=== PATIENT | female | born 1965 | race Caucasian/White ===

== ENCOUNTER 2018-04-04 18:34 | Observation (INO) ==
--- NOTE | 2018-04-04 19:06 | Emergency Department Note ---
ED Disposition Clinical Impression: Cough, Elevated WBC count, Hyponatremia Disposition: Admitted as Observation Condition on Discharge: Good - Critical Care Critical Care Time: No Attestation: On 04/04/18, the high probability of a clinically significant, sudden or life threatening deterioration of the following system(s) required my full and direct attention, intervention and personal management. The time I documented below is in addition to time spent performing reported procedures but includes the following listed in this critical care notation. Medical Decision Making - Medical Records Medical records reviewed: Yes: I reviewed the patient's medical records. MR Comment: Has most of care in [place], [place]. No prior lab work noted - [place] Inquiry Pt receiving controlled substance: No Vital Signs: 04/04/18 18:35 Temperature 97.8 F Temperature Source Oral Pulse Rate [Right Brachial] 101 H Respiratory Rate 20 Blood Pressure [Right Arm] 140/75 Blood Pressure Mean [Right Arm] 96 Blood Pressure Source [Right Arm] Automatic Cuff Blood Pressure Position [Right Arm] Sitting 02 Sat by Pulse Oximetry 94 L Oxygen Delivery Method Room Air - Lab Data Lab results reviewed: Yes: I reviewed the patient's lab results. Lab Results 04/04/18 18:53: WBC 33.0 H*, RBC 4.80, Hgb 11.1 L, Hct 34.6 L, MCV 72.1 L, MCH 23.1 L, MCHC 32.1, RDW 15.8, Plt Count 491 H, MPV 7.6, Neut % (Auto) 80.3 H, Lymph % (Auto) 14.7, [place] % (Auto) 3.8, Eos % (Auto) 0.6, Baso % (Auto) 0.5, Neut # (Auto) 26.5 H, Lymph # (Auto) 4.9 H, [place] # (Auto) 1.2 H, Eos # (Auto) 0.2, Baso # (Auto) 0.2 04/04/18 18:53: Sodium 125 L, Potassium 3.4 L, Chloride 88 L, Carbon Dioxide 27 , Anion Gap 13.4, BUN 15, Creatinine 0.92, Estimated Creat Clear 123, Estimated GFR 64, Est GFR ( Amer) 78, Glucose 96, Calcium 8.7, Total Bilirubin 0.4 , AST 20, ALT 23, Alkaline Phosphatase 89, Total Creatine Kinase 130, CK-MB (CK- 2) 1.6, CK-MB (CK-2) Rel Index 1.2, Troponin I < 0.02, Total Protein 7.4, Albumin 3.4, Globulin 4.0 H, Albumin/Globulin Ratio 0.9 L 04/04/18 18:53: Lactic Acid 1.1 04/04/18 19:45: Urine Color Yellow, Urine Appearance Clear, Urine pH 7.0, Ur Specific [place] 1.010, Urine Protein Negative, Urine Glucose (UA) 2+, Urine Ketones Negative, Urine Blood Negative, Urine Nitrate Negative, Urine Bilirubin Negative, Urine Urobilinogen 0.2, Ur Leukocyte Esterase Negative Result diagrams: 04/04/18 18:53 04/04/18 18:53 Orders (Tests/Meds): ED MEDICATIONS Generic Name Dose Route Start Last Admin Trade Name Freq PRN Reason Stop Dose Admin Acetaminophen 650 mg 04/04/18 19:55 Acetaminophen 325mg Tab PO 05/04/18 19:54 Q4HP PRN As Needed for Fever or Pain Sodium Chloride 1,000 mls @ 75 mls/hr 04/04/18 19:45 Sod Chlor 0.9% 1000ml Bag IV 05/04/18 19:44 .[id number] BRANDON Ceftriaxone Sodium 1 gm/ 50 mls @ 100 mls/hr 04/04/18 20:00 Sodium Chloride IV 04/18/18 19:59 Q24H BRANDON Protocol Azithromycin 500 mg/ Sodium 250 mls @ 250 mls/hr 04/04/18 20:00 Chloride IV 04/18/18 19:59 Q24H BRANDON Protocol Discontinued Medications Generic Name Dose Route Start Last Admin Trade Name Freq PRN Reason Stop Dose Admin Acetaminophen 500 mg 04/04/18 19:10 04/04/18 19:38 Tylenol 500mg Tablet PO 04/04/18 19:11 500 mg ONCE ONE Administration Albuterol/Ipratropium 3 ml 04/04/18 19:11 Duoneb 3ml Neb IH 04/04/18 19:12 ONCE ONE Ondansetron HCl 4 mg 04/04/18 19:11 04/04/18 19:38 Zofran 4mg Odt SL 04/04/18 19:12 4 mg ONCE ONE Administration ORDERS Category Date Time Status XR chest 2V Routine Exams 04/05/18 06:30 Ordered XR chest 2V Stat Exams 04/04/18 18:42 Taken Complete Blood Count Auto Diff Stat Lab 04/04/18 18:53 Results UA [Urinalysis and Microscopic] Stat Lab 04/04/18 19:45 Received Blood Culture Stat Micro 04/04/18 18:53 Received ECG Request by /Sergey Stat Y 04/04/18 18:42 Ordered - Radiology Data #1 Image(s): Chest Image Reviewed: Yes I reviewed the patient's radiology image Preliminary Findings: Normal/NAD, No Infiltrates Seen, Normal Lung Inflation [place] , Normal Heart Size (chronic changes) - ECG Data Tracing #1 I reviewed this ECG and interpreted as documented below: ECG initial impression date: 04/04/18 ECG initial impression time: 18:45 ECG normal with no acute: arrhythmias, ischemia, conduction abnormalities, chamber hypertrophy Normal Sinus Rhythm: Yes Resp/SOB HPI - General Chief Complaint: Shortness of Breath/Dyspnea Stated Complaint: SOA Time Seen by Provider: 04/04/18 19:12 Mode of Arrival: EMS Source of Information: Patient Limitations: No Limitations Description of Symptoms (Recalled from ER Triage Doc. by RN): Pt reports SOA. pt states has been cleaning out storage building, got hot, and became more SOA. Pt reports has been feeling SOA all day. - History of Present Illness SOB today when moving boxes and exposed to dust. Had some wheezing. Hx COPD. Pos relief with duoneb per [facility] [employer] [employer]. Longstanding calf pain with neg DVT six months ago in [place], [place]; no new calf pain today. No sputum. No fever but has chills. No CP or syncope. MD Complaint: shortness of breath Onset (ago): hour(s) Context: occurred during exertion, allergen exposure Severity: mild Consistency/Duration: intermittent Relieving factors: bronchodilators Exacerbating factors: movement Known history of: COPD Associated symptoms: denies other symptoms Treatment prior to arrival: bronchodilator - Related Data Allergies Allergy/AdvReac Type Severity Reaction Status Date / Time No Known Allergies Allergy Verified 04/04/18 18:41 - Well's Criteria PE Score Clinical signs/symptoms of DVT: No PE is #1 diagnosis or equally likely: No Heart rate is > 100: No Immobile at least 3 days, or surgery in past 4 wks: No Previously, obj. diagnosed PE or DVT: No Hemoptysis: No Malignancy w/Rx within 6mo, or palliative: No PE Score: 0 [facility] History Medical History: Reports:: Diabetes Mellitus Type 2 Denies:: Diabetes Mellitus Type 1 Laterality Cases: Left: Arthroscopy Shoulder, Carpal Tunnel Release - Social History Smoking Status: Current every day smoker Tobacco Type: cigarettes Alcohol Intake: never - Psychiatric History Expresses thoughts of harming self/others: None Suicide Plan Description: No Plan ROS Obtained: Yes All systems reviewed & no additional complaints Physical Exam - General General appearance: obese, other (HR 98) - Head Head exam: atraumatic, normocephalic, normal inspection - Eye Eye exam: Present: normal appearance, PERRL, EOMI - ENT ENT exam: Present: normal exam, normal oropharynx, mucous membranes moist, normal external ear exam - Neck Neck exam: Present: normal inspection, full ROM, trachea midline. Absent: meningismus, lymphadenopathy - Chest Chest inspection: Present: normal inspection, symmetric chest wall rise. Absent : tenderness - Respiratory Respiratory exam: Present: normal lung sounds bilaterally. Absent: respiratory distress - Cardiovascular Cardiovascular exam: Present: regular rate, normal rhythm. Absent: JVD - Abdominal Exam Abdominal exam: Present: soft, normal bowel sounds. Absent: distention, tenderness, guarding - Extremities Exam Extremities exam: Present: normal inspection, full ROM, normal capillary refill. Absent: calf tenderness - Back Exam Back exam: Present: normal inspection. Absent: tenderness - Neurological Exam Neurological exam: Present: alert, oriented X3. Absent: motor sensory deficit - Psychiatric Psychiatric exam: Present: normal affect, normal mood - Skin Skin exam: Present: warm, dry, intact, normal color - Lymphatic Lymphatic Findings: no adenopathy
[2018-04-04 19:26] LABS: Basophils # 0.2 K/mm3 (0-0.2); Basophils % 0.5 % (0.1-2.0); Eosinophils # 0.2 K/mm3 (0.0-0.4); Eosinophils % 0.6 % (0.1-12.0); Hematocrit 34.6 % (37.0-47.0); Hemoglobin 11.1 g/dL (12.2-16.2); Lymphocytes # 4.9 K/mm3 (0.7-4.5); Lymphocytes % 14.7 K/mm3 (10-50); Mean Corpuscular HGB Conc 32.1 g/dL (31.8-35.4); Mean Corpuscular Hemoglobin 23.1 pg (27.0-31.2); Mean Corpuscular Volume 72.1 fl (81-99); Mean Platelet Volume 7.6 fl (7.4-10.4); Monocytes # 1.2 K/mm3 (0.1-1.0); Monocytes % 3.8 % (1.7-9.3); Neutrophils # 26.5 K/mm3 (1.8-7.8); Neutrophils % 80.3 % (37.0-80.0); Platelet Count 491 K/mm3 (142-424); Red Cell Distribution Width 15.8 % (11.5-17.5)
[2018-04-04 19:30] LABS: Alanine Aminotransferase 23 U/L (12-78); Albumin Level 3.4 gm/dL (3.4-5.0); Albumin/Globulin Ratio 0.9 (1.1-1.8); Alkaline Phosphatase 89 U/L (46-116); Anion Gap 13.4 mEq/L (5-15); Aspartate Amino Transferase 20 U/L (15-37); Bilirubin,Total 0.4 mg/dL (0.2-1.0); Blood Urea Nitrogen 15 mg/dL (7-18); Calcium 8.7 mg/dL (8.5-10.1); Carbon Dioxide 27 mmol/L (21.0-32.0); Chloride 88 mmol/L (98-107); Creatine Kinase 130 U/L (26-192); Glucose 96 mg/dL (74-106); Potassium 3.4 mmoL/L (3.5-5.1); Sodium 125 mmol/L (136-145); Total Protein,Serum 7.4 gm/dL (6.4-8.2)
[2018-04-04 19:54] LABS: Microscopic, Urine URINE MICROSCOPIC (MICROSCOPIC)
[2018-04-04 20:02] LABS: Appearance,Urine CLEAR (Clear); Bilirubin,Urine Negative (Negative); Blood, Urine Negative (Negative); Color,Urine YELLOW (Yellow); Glucose,Urine (UA) 2+ (Negative); Ketones,Urine Negative (Negative); Leukocyte Esterase,Urine Negative (Negative); Protein,Urine Negative (Negative); Urobilinogen,Urine 0.2 EU/dl (0.2)
[2018-04-04 20:31] LABS: Lymphocytes % 19 % (10-50); Monocytes % 4 % (2-9); Neutrophils % 77 % (42-76); Total Cells Counted 100
[2018-04-04 20:32] LABS: RBC Morphology Normal; Stomatocytes 2+
[2018-04-04 20:43] LABS: Bacteria,Urine 1+ /lpf
[2018-04-04 20:44] LABS: RBC,Urine Occasional #/hpf (0-3)
--- NOTE | 2018-04-05 07:21 | Pharmacy Consult Notes ---
[facility] Pharmacy VTE Monitoring - Patient Demographics Admission date: 04/04/18 Report Date: 04/05/18 Time: 07:20 Allergies/Adverse Reactions: Patient Allergies No Known Allergies Allergy (Verified 04/04/18 18:41) Height: 1.68 m Weight: 104.326 kg Patient Problems: Current Active Problems Cough (Acute) Elevated WBC count (Acute) Hyponatremia (Acute) - VTE Risk Labs: VTE Related Lab Results Hgb 11.1 g/dL (12.2-16.2) L 04/04/18 18:53 Hct 34.6 % (37.0-47.0) L 04/04/18 18:53 Plt Count 491 K/mm3 (142-424) H 04/04/18 18:53 BUN 15 mg/dL (7-18) 04/04/18 18:53 Creatinine 0.92 mg/dL (0.55-1.02) 04/04/18 18:53 Estimated Creat Clear 123 mL/min (0-300) 04/04/18 18:53 VTE Score: 3 VTE Risk Level: Low Risk Clinical Trial Participant: No - Prophylaxis VTE Prophylaxis Ordered?: Yes Types of VTE Prophylaxis: TEDS Knee High Location of Applied Device: Bilateral Lower Extremeties
--- NOTE | 2018-04-05 08:38 | History & Physical Report ---
*Admission Date: 04/04/18 <Astrid Mcmanus 04/05/18 08:44> *Chief complaint: SOA <Astrid Mcmanus 04/05/18 08:44> *History of present illness: Ms. Tucker is a 53-year-old female patient of Dr. Montejo who began having shortness of breath yesterday morning while moving some of her things to storage. She states 911 was called and an ambulance transported her to the ER. She was given a breathing treatment in the ambulance which did help. She has had a cough but it has not been productive. She denies any chest pain or fever. She has had chills. Upon evaluation in the emergency room her white count was found to be elevated and she was admitted for possible pneumonia. This a.m. she states her shortness of breath is much better. <Astrid Mcmanus 04/05/18 08:44> [facility] History Medical History: Reports:: Atherosclerotic Heart Disease, Chronic Obstructive Pulmonary Disease (COPD), Diabetes Mellitus Type 2, Hyperlipidemia, MRSA Denies:: Diabetes Mellitus Type 1 <Astrid Mcmanus 04/05/18 08:44> Laterality Cases: Left: Arthroscopy Shoulder, Carpal Tunnel Release <Astrid Mcmanus 04/05/18 08:44> Other Surgeries: Yes: Cholecystectomy, Coronary Stent, , Hysterectomy- Total, Sinus Surgery <Astrid Mcmanus 04/05/18 08:44> - *Social History Smoking Status: Current every day smoker <Astrid Mcmanus 04/05/18 08:44> Tobacco Type: cigarettes <Astrid Mcmanus 04/05/18 08:44> # Packs/Day (cigarettes): 2 <Astrid Mcmanus 04/05/18 08:44> Alcohol Intake: never <Astrid Mcmanus 04/05/18 08:44> Occupational Status: disabled <Astrid Mcmanus 04/05/18 08:44> Household Members: spouse, children <Astrid Mcmanus 04/05/18 08:44> - Psychiatric History Expresses thoughts of harming self/others: None <Astrid Mcmanus 04/05/18 08: 44> Suicide Plan Description: No Plan <Astrid Mcmanus 04/05/18 08:44> *Family Hx:: Coronary Artery Disease, Diabetes, Heart Attack, Hyperlipidemia, Hypertension <Astrid Mcmanus 04/05/18 08:44> Review of Systems - Constitutional Reports chills, Reports weakness <Astrid Mcmanus 04/05/18 08:44> - Eyes Denies blurry vision, Denies double vision <Astrid Mcmanus 04/05/18 08:44> - ENT Reports nasal congestion, Reports sore throat <Astrid Mcmanus 04/05/18 08:44> - *Cardiovascular Reports fast heart rate, Denies chest pain <Astrid Mcmanus 04/05/18 08:44> - *Respiratory Reports cough, Reports shortness of breath, Reports shortness of breath with activity <Astrid Mcmanus 04/05/18 08:44> - *Gastrointestinal Reports vomiting (3x yesterday, none today), Denies abdominal pain, Denies loose stools, Denies nausea <Astrid Mcmanus 04/05/18 08:44> - *Genitourinary Denies difficulty urinating, Denies painful urination <Astrid Mcmanus 08:44> - *Musculoskeletal Denies joint pain, Denies muscle cramps <Astrid Mcmanus 04/05/18 08:44> - *Neurologic Denies headache(s), Denies dizziness <Astrid Mcmanus 04/05/18 08:44> Meds Home Medications Medication Instructions Recorded Confirmed Type Aspirin [Aspirin 81mg EC Tab] 81 mg PO DAILY 04/04/18 04/04/18 History Atorvastatin Calcium [Atorvastatin 80 mg PO HS 04/04/18 04/04/18 History 80mg Tab] Buspirone HCl [Buspar 5mg tablet] 5 mg PO TID 04/04/18 04/04/18 History Canagliflozin [Invokana] 100 mg PO DAILY 04/04/18 04/04/18 History Clopidogrel Bisulfate [Plavix] 75 mg PO HS 04/04/18 04/04/18 History Exenatide Microspheres [Bydureon 2 mg SQ WEEKLY 04/04/18 04/04/18 History Pen] Fenofibrate 160 mg PO DAILY 04/04/18 04/04/18 History Fluticasone/Salmeterol [Advair 2 puff INHALATION DAILY 04/04/18 04/04/18 History 500/50mcg diskus] Insulin Glargine,Hum.rec.anlog 60 unit SQ DAILY 04/04/18 04/04/18 History [Basaglar Kwikpen U-100] Insulin NPH Hum/Reg Insulin Hm 50 unit SQ BID 04/04/18 04/05/18 History [Humulin 70/30 Kwikpen] Isosorbide Mononitrate [Isosorbide 120 mg PO DAILY 04/04/18 04/04/18 History Mononitrate ER] Lisinopril [Lisinopril 10mg Tab] 10 mg PO DAILY 04/04/18 04/04/18 History Loratadine [Claritin] 10 mg PO DAILY 04/04/18 04/04/18 History Metformin HCl [Metformin 500mg 1,000 mg PO BID 04/04/18 04/04/18 History Tablet] Metoprolol Succinate 100 mg PO DAILY 04/04/18 04/04/18 History Montelukast Sodium [Montelukast 10 mg PO HS 04/04/18 04/04/18 History 10mg Tab] Pantoprazole Sodium [Protonix 40mg 40 mg PO DAILY 04/04/18 04/04/18 History tablet] Potassium Chloride [Klor-Con 10mEq 10 meq PO HS 04/04/18 04/04/18 History tab] Sucralfate [Sucralfate 1gm 1 gm PO TID 04/04/18 04/04/18 History Tab] Venlafaxine HCl [Venlafaxine HCl 375 mg PO DAILY 04/04/18 04/04/18 History ER] glyBURIDE [Diabeta 5mg tablet] 10 mg PO BID 04/04/18 04/04/18 History hydrOXYzine pamoate [Vistaril] 25 mg PO BID 04/04/18 04/04/18 History raNITIdine HCl [Ranitidine HCl] 150 mg PO DAILY 04/04/18 04/04/18 History Fluticasone Propionate [Flonase 1 spr NS DAILY 04/05/18 04/05/18 History 50mcg nasal spray 16gm] Gabapentin [Neurontin 600mg 600 mg PO TID 04/05/18 04/05/18 History tablet] Polyethylene Glycol 3350 [Gavilax] 17 gm PO DAILY 04/05/18 04/05/18 History hydroCHLOROthiazide [HCTZ 25mg 25 mg PO DAILY 04/05/18 04/05/18 History tab] <Sony Dodson - 04/05/18 10:24> Allergies Allergy/AdvReac Type Severity Reaction Status Date / Time No Known Allergies Allergy Verified 04/04/18 18:41 <Sony Dodson - 04/05/18 10:24> Exam Vital signs and Labs for Last 24 Hours: Temp Pulse Resp BP Pulse Ox 97.7 F 73 18 132/69 97 04/05/18 07:25 04/05/18 07:25 04/05/18 07:25 04/05/18 07:25 04/05/18 07:25 Laboratory Results - last 24 hr 04/04/18 18:53: WBC 33.0 H*, RBC 4.80, Hgb 11.1 L, Hct 34.6 L, MCV 72.1 L, MCH 23.1 L, MCHC 32.1, RDW 15.8, Plt Count 491 H, MPV 7.6, Neut % (Auto) 80.3 H, Lymph % (Auto) 14.7, [place] % (Auto) 3.8, Eos % (Auto) 0.6, Baso % (Auto) 0.5, Neut # (Auto) 26.5 H, Lymph # (Auto) 4.9 H, [place] # (Auto) 1.2 H, Eos # (Auto) 0.2, Baso # (Auto) 0.2, Total Counted 100, Neutrophils % (Manual) 77 H, Lymphocytes % (Manual) 19, Monocytes % (Manual) 4, Platelet Estimate Slight increase, RBC Morphology Normal, Stomatocytes 2+ 04/04/18 18:53: Sodium 125 L, Potassium 3.4 L, Chloride 88 L, Carbon Dioxide 27 , Anion Gap 13.4, BUN 15, Creatinine 0.92, Estimated Creat Clear 123, Estimated GFR 64, Est GFR ( Amer) 78, Glucose 96, Calcium 8.7, Total Bilirubin 0.4 , AST 20, ALT 23, Alkaline Phosphatase 89, Total Creatine Kinase 130, CK-MB (CK- 2) 1.6, CK-MB (CK-2) Rel Index 1.2, Troponin I < 0.02, Total Protein 7.4, Albumin 3.4, Globulin 4.0 H, Albumin/Globulin Ratio 0.9 L 04/04/18 18:53: Lactic Acid 1.1 04/04/18 19:45: Urine Color Yellow, Urine Appearance Clear, Urine pH 7.0, Ur Specific [place] 1.010, Urine Protein Negative, Urine Glucose (UA) 2+, Urine Ketones Negative, Urine Blood Negative, Urine Nitrate Negative, Urine Bilirubin Negative, Urine Urobilinogen 0.2, Ur Leukocyte Esterase Negative, Urine RBC Occasional, Ur Squamous Epith Cells 5-10, Urine Bacteria 1+ 04/04/18 22:59: POC Glucose 226 H <Sony Dodson - 04/05/18 10:24> Temp Pulse Resp BP Pulse Ox 97.7 F 73 18 132/69 97 04/05/18 07:25 04/05/18 07:25 04/05/18 07:25 04/05/18 07:25 04/05/18 07:25 Laboratory Results - last 24 hr 04/04/18 18:53: WBC 33.0 H*, RBC 4.80, Hgb 11.1 L, Hct 34.6 L, MCV 72.1 L, MCH 23.1 L, MCHC 32.1, RDW 15.8, Plt Count 491 H, MPV 7.6, Neut % (Auto) 80.3 H, Lymph % (Auto) 14.7, [place] % (Auto) 3.8, Eos % (Auto) 0.6, Baso % (Auto) 0.5, Neut # (Auto) 26.5 H, Lymph # (Auto) 4.9 H, [place] # (Auto) 1.2 H, Eos # (Auto) 0.2, Baso # (Auto) 0.2, Total Counted 100, Neutrophils % (Manual) 77 H, Lymphocytes % (Manual) 19, Monocytes % (Manual) 4, Platelet Estimate Slight increase, RBC Morphology Normal, Stomatocytes 2+ 04/04/18 18:53: Sodium 125 L, Potassium 3.4 L, Chloride 88 L, Carbon Dioxide 27 , Anion Gap 13.4, BUN 15, Creatinine 0.92, Estimated Creat Clear 123, Estimated GFR 64, Est GFR ( Amer) 78, Glucose 96, Calcium 8.7, Total Bilirubin 0.4 , AST 20, ALT 23, Alkaline Phosphatase 89, Total Creatine Kinase 130, CK-MB (CK- 2) 1.6, CK-MB (CK-2) Rel Index 1.2, Troponin I < 0.02, Total Protein 7.4, Albumin 3.4, Globulin 4.0 H, Albumin/Globulin Ratio 0.9 L 04/04/18 18:53: Lactic Acid 1.1 04/04/18 19:45: Urine Color Yellow, Urine Appearance Clear, Urine pH 7.0, Ur Specific [place] 1.010, Urine Protein Negative, Urine Glucose (UA) 2+, Urine Ketones Negative, Urine Blood Negative, Urine Nitrate Negative, Urine Bilirubin Negative, Urine Urobilinogen 0.2, Ur Leukocyte Esterase Negative, Urine RBC Occasional, Ur Squamous Epith Cells 5-10, Urine Bacteria 1+ 04/04/18 22:59: POC Glucose 226 H <Astrid Mcmanus - 04/05/18 08:44> I & O for Last 24 hours: Intake & Output 04/02/18 04/03/18 04/04/18 04/05/18 11:59 11:59 11:59 11:59 Intake Total 2419 / 2419 Output Total 1999 Balance 419 / 419 Weight 230 lb <Sony Dodson - 04/05/18 10:24> Intake & Output 04/02/18 04/03/18 04/04/18 04/05/18 11:59 11:59 11:59 11:59 Intake Total 2419 / 2419 Output Total 1999 Balance 419 / 419 Weight 230 lb <Astrid Mcmanus 04/05/18 08:44> - Constitutional no acute distress <Astrid Mcmanus 04/05/18 08:44> - *Routine HEENT Exam Head: Present: normocephalic, atraumatic <Astrid Mcmanus 04/05/18 08:44> Eye: Present: EOMI, PERRL <Astrid Mcmanus 04/05/18 08:44> ENT: Present: mucous membranes moist <Astrid Mcmanus 04/05/18 08:44> - *Routine Neck Exam Present: supple, full ROM [facility] 04[facility] 08:44> - *Routine Respiratory Exam Present: wheezes. Absent: rales [facility] 08:44> - *Routine Cardiovascular Exam Present: RRR [facility] 04/05/[facility] 08:44> - *Routine Abdominal Exam Present: soft, normoactive bowel sounds. Absent: tenderness [facility] 08:44> - *Routine Extremities Exam Present: edema (trace) [facility] 04/05/18 08:44> - *Routine Skin Exam Present: intact [facility] 04/05/18 08:44> - *Routine Neurological Exam Present: alert, oriented X3 [facility] 04/05/18 08:44> H&P: Result - Labs Labs: Short CBC 04/04/18 Range/Units 18:53 WBC 33.0 H* (4.8-10.8) K/mm3 Hgb 11.1 L (12.2-16.2) g/dL Hct 34.6 L (37.0-47.0) % Plt Count 491 H (142-424) K/mm3 BMP 04/04/18 18:53 Sodium 125 L Potassium 3.4 L Chloride 88 L Carbon Dioxide 27 BUN 15 Creatinine 0.92 Glucose 96 Calcium 8.7 Cardiac Enzymes 04/04/18 Range/Units 18:53 Total Creatine Kinase 130 (26-192) U/L CK-MB (CK-2) 1.6 (0.0-3.6) ng/ml Troponin I < 0.02 (0.00-0.06) ng/ml Liver Function 04/04/18 Range/Units 18:53 Total Bilirubin 0.4 (0.2-1.0) mg/dL AST 20 (15-37) U/L ALT 23 (12-78) U/L Alkaline Phosphatase 89 (46-116) U/L Albumin 3.4 (3.4-5.0) gm/dL Urine 04/04/18 Range/Units 19:45 Urine Color Yellow (Yellow) Urine Appearance Clear (Clear) Urine pH 7.0 (5.0-8.5) Ur Specific [place] 1.010 (1.005-1.030) Urine Protein Negative (Negative) Urine Glucose (UA) 2+ (Negative) <Sony Dodson - 04/05/18 10:24> <Astrid Mcmanus - 04/05/18 08:44> - Impressions CXR - Coarsening of the interstitial markings which could be related to smoking- related lung disease or interstitial pneumonitis <Astrid Mcmanus - 04/05/18 08:44> Assessment and Plan (1) Elevated WBC count Current visit: Yes Status: Acute Category: Medical Code(s): D72.829 - Elevated white blood cell count, unspecified (2) Hyponatremia Current visit: Yes Status: Acute Category: Medical Code(s): E87.1 - Hypo- osmolality and hyponatremia (3) Shortness of breath Current visit: Yes Status: Acute Category: Medical Code(s): R06.02 - Shortness of breath (4) Cough Current visit: Yes Status: Acute Category: Medical Code(s): R05 - Cough (5) COPD (chronic obstructive pulmonary disease) Current visit: Yes Status: Chronic Category: Medical Code(s): J44.9 - Chronic obstructive pulmonary disease, unspecified (6) Hyperlipidemia Current visit: Yes Status: Chronic Category: Medical Code(s): E78.5 - Hyperlipidemia, unspecified (7) Type 2 diabetes mellitus Current visit: Yes Status: Chronic Category: Medical Code(s): E11.9 - Type 2 diabetes mellitus without complications (8) Coronary artery disease Current visit: Yes Status: Chronic Category: Medical Code(s): I25.10 - Atherosclerotic heart disease of [place] coronary artery without angina pectoris <Astrid Mcmanus - 04/05/18 08:35> (1) Pneumonia Current visit: Yes Status: Acute Category: Medical Code(s): J18.9 - Pneumonia, unspecified organism (2) Elevated WBC count Current visit: Yes Status: Acute Category: Medical Code(s): D72.829 - Elevated white blood cell count, unspecified (3) Hyponatremia Current visit: Yes Status: Acute Category: Medical Code(s): E87.1 - Hypo- osmolality and hyponatremia (4) Shortness of breath Current visit: Yes Status: Acute Category: Medical Code(s): R06.02 - Shortness of breath (5) Cough Current visit: Yes Status: Acute Category: Medical Code(s): R05 - Cough (6) COPD (chronic obstructive pulmonary disease) Current visit: Yes Status: Chronic Category: Medical Code(s): J44.9 - Chronic obstructive pulmonary disease, unspecified (7) Hyperlipidemia Current visit: Yes Status: Chronic Category: Medical Code(s): E78.5 - Hyperlipidemia, unspecified (8) Type 2 diabetes mellitus Current visit: Yes Status: Chronic Category: Medical Code(s): E11.9 - Type 2 diabetes mellitus without complications (9) Coronary artery disease Current visit: Yes Status: Chronic Category: Medical Code(s): I25.10 - Atherosclerotic heart disease of [place] coronary artery without angina pectoris <Sony Dodson - 04/05/18 10:24> - Assessment and plan all Dx Assessment and Plan for all problems:: Patient seen and examined. Clinically, her presentaton is consistent with an early pneumonia although initial CXR is not conclusive. Subjectively she feels better this AM; about at her baseline considering her COPD. Will repeat CXR and CBC this morning and possibly discharge home later today. <Sony Dodson - 04/05/18 10:24> We will recheck a CBC as well as a chest x-ray today. Patient looks much better. <Astrid Mcmanus - 04/05/18 08:44>
[2018-04-05 10:03] LABS: Basophils # 0.1 K/mm3 (0-0.2); Basophils % 0.6 % (0.1-2.0); Eosinophils # 0.2 K/mm3 (0.0-0.4); Eosinophils % 1.5 % (0.1-12.0); Hematocrit 35.9 % (37.0-47.0); Hemoglobin 11.4 g/dL (12.2-16.2); Lymphocytes # 3.6 K/mm3 (0.7-4.5); Lymphocytes % 30.1 K/mm3 (10-50); Mean Corpuscular HGB Conc 31.6 g/dL (31.8-35.4); Mean Corpuscular Volume 72.8 fl (81-99); Mean Platelet Volume 7.9 fl (7.4-10.4); Monocytes # 0.7 K/mm3 (0.1-1.0); Monocytes % 5.8 % (1.7-9.3); Neutrophils # 7.4 K/mm3 (1.8-7.8); Platelet Count 490 K/mm3 (142-424); Red Blood Count 4.94 M/mm3 (4.20-5.40); Red Cell Distribution Width 15.8 % (11.5-17.5)
[2018-04-05 10:05] LABS: Anion Gap 14.9 mEq/L (5-15); Potassium 3.9 mmoL/L (3.5-5.1)
--- NOTE | 2018-04-05 21:27 | Discharge Summary ---
General - General Admission date:: 04/04/18 <Sony Dodson - 04/09/18 11:24> 04/04/18 <Astrid Mcmanus - 04/05/18 21:27> Discharge date: 04/05/18 <Astrid Mcmanus - 04/05/18 21:27> HPI HPI: Ms. Tucker is a 53-year-old female patient of Dr. Montejo who began having shortness of breath yesterday morning while moving some of her things to storage. She states 911 was called and an ambulance transported her to the ER. She was given a breathing treatment in the ambulance which did help. She has had a cough but it has not been productive. She denies any chest pain or fever. She has had chills. Upon evaluation in the emergency room her white count was found to be elevated and she was admitted for possible pneumonia. This a.m. she states her shortness of breath is much better. <Astrid Mcmanus - 04/05/18 21:27> Hospital Course Hospital Course: The initial CXR showed coarsening of the interstitial markings which could be related to smoking-related lung disease or interstitial pneumonitis. Clinically , her presentaton was consistent with an early pneumonia although the CXR was not conclusive. A CXR and CBC were repeated. The CXR showed persistent but slightly improved coarsening of the bronchovascular markings suggesting improvement in bronchitis. Her WBC decreased from 33 to 12. She was stable to be discharged home on abx. <Astrid Mcmanus - 04/05/18 21:27> Objective Vital signs: Temp Pulse Resp BP Pulse Ox 98.0 F 70 18 130/68 95 04/05/18 11:14 04/05/18 11:14 04/05/18 11:14 04/05/18 11:14 04/05/18 11:14 <IvorySony Alistair - 04/09/18 11:24> Temp Pulse Resp BP Pulse Ox 98.0 F 70 18 130/68 95 04/05/18 11:14 04/05/18 11:14 04/05/18 11:14 04/05/18 11:14 04/05/18 11:14 <Astrid Mcmanus - 04/05/18 21:27> Narrative: - Constitutional no acute distress - *Routine HEENT Exam Head: Present: normocephalic, atraumatic Eye: Present: EOMI, PERRL ENT: Present: mucous membranes moist - *Routine Neck Exam Present: supple, full ROM - *Routine Respiratory Exam Present: wheezes. Absent: rales - *Routine Cardiovascular Exam Present: RRR - *Routine Abdominal Exam Present: soft, normoactive bowel sounds. Absent: tenderness - *Routine Extremities Exam Present: edema (trace) - *Routine Skin Exam Present: intact - *Routine Neurological Exam Present: alert, oriented X3 <Astrid Mcmanus - 04/05/18 21:27> Results Labs on day of discharge: Preliminary micro results at discharge 04/04/18 18:53 Blood Culture - Preliminary Blood NO GROWTH AFTER 4 DAYS 04/04/18 18:53 Blood Culture - Preliminary Blood NO GROWTH AFTER 4 DAYS <Sony Dodson - 04/09/18 11:24> Labs from last 24 hours 04/05/18 04/05/18 04/05/18 09:10 09:10 06:11 WBC 12.0 H D RBC 4.94 Hgb 11.4 L Hct 35.9 L MCV 72.8 L MCH 23.0 L MCHC 31.6 L RDW 15.8 Plt Count 490 H MPV 7.9 Neut % (Auto) 62.0 Lymph % (Auto) 30.1 [place] % (Auto) 5.8 Eos % (Auto) 1.5 Baso % (Auto) 0.6 Neut # (Auto) 7.4 Lymph # (Auto) 3.6 [place] # (Auto) 0.7 Eos # (Auto) 0.2 Baso # (Auto) 0.1 Sodium 131 L Potassium 3.9 Chloride 96 L Carbon Dioxide 24 Anion Gap 14.9 BUN 11 D Creatinine 0.84 Estimated Creat Clear 129 Estimated GFR 71 Est GFR ( Amer) 86 Glucose 273 H D POC Glucose 148 H 04/04/18 22:59 WBC RBC Hgb Hct MCV MCH MCHC RDW Plt Count MPV Neut % (Auto) Lymph % (Auto) [place] % (Auto) Eos % (Auto) Baso % (Auto) Neut # (Auto) Lymph # (Auto) [place] # (Auto) Eos # (Auto) Baso # (Auto) Sodium Potassium Chloride Carbon Dioxide Anion Gap BUN Creatinine Estimated Creat Clear Estimated GFR Est GFR ( Amer) Glucose POC Glucose 226 H Preliminary micro results at discharge 04/04/18 18:53 Blood Culture - Preliminary Blood NO GROWTH AFTER 24 HOURS 04/04/18 18:53 Blood Culture - Preliminary Blood NO GROWTH AFTER 24 HOURS <Astrid Mcmanus - 04/05/18 21:27> DS: Diagnosis - Discharge Diagnosis (1) Pneumonia Status: Acute (2) Elevated WBC count Status: Acute (3) Hyponatremia Status: Acute (4) Shortness of breath Status: Acute (5) Cough Status: Acute (6) COPD (chronic obstructive pulmonary disease) Status: Chronic (7) Hyperlipidemia Status: Chronic (8) Type 2 diabetes mellitus Status: Chronic (9) Coronary artery disease Status: Chronic <Astrid Mcmanus - 04/05/18 21:23> (1) Pneumonia Status: Acute (2) Elevated WBC count Status: Acute (3) Hyponatremia Status: Acute (4) Shortness of breath Status: Acute (5) Cough Status: Acute (6) COPD (chronic obstructive pulmonary disease) Status: Chronic (7) Hyperlipidemia Status: Chronic (8) Type 2 diabetes mellitus Status: Chronic (9) Coronary artery disease Status: Chronic <Sony Dodson - 04/09/18 11:24> Discharge Plan - Patient Discharge Instructions ACTIVITY: Continue current activity <Astrid Mcmanus - 04/05/18 21:27> DIET: continue same diet <Astrid Mcmanus 04/05/18 21:27> Patient Instructions: DI for Hyponatremia <Sony Dodson - 04/09/18 11:24> Forms: <Sony Dodson - 04/09/18 11:24> - Follow up Plan Follow up with: Xavier Montejo [Referring] - 1 day <Sony Dodson - 11:24> Disposition: Home, Self-Care <Sony Dodson - 04/09/18 11:24> Home Medications: Home Medications Medication Instructions Recorded Confirmed Type Aspirin [Aspirin 81mg EC Tab] 81 mg PO DAILY 04/04/18 04/04/18 History Atorvastatin Calcium [Atorvastatin 80 mg PO HS 04/04/18 04/04/18 History 80mg Tab] Buspirone HCl [Buspar 5mg tablet] 5 mg PO TID 04/04/18 04/04/18 History Canagliflozin [Invokana] 100 mg PO DAILY 04/04/18 04/04/18 History Clopidogrel Bisulfate [Plavix] 75 mg PO HS 04/04/18 04/04/18 History Exenatide Microspheres [Bydureon 2 mg SQ WEEKLY 04/04/18 04/04/18 History Pen] Fenofibrate 160 mg PO DAILY 04/04/18 04/04/18 History Fluticasone/Salmeterol [Advair 2 puff INHALATION DAILY 04/04/18 04/04/18 History 500/50mcg diskus] Insulin Glargine,Hum.rec.anlog 60 unit SQ DAILY 04/04/18 04/04/18 History [Basaglar Kwikpen U-100] Insulin NPH Hum/Reg Insulin Hm 50 unit SQ BID 04/04/18 04/05/18 History [Humulin 70/30 Kwikpen] Isosorbide Mononitrate [Isosorbide 120 mg PO DAILY 04/04/18 04/04/18 History Mononitrate ER] Lisinopril [Lisinopril 10mg Tab] 10 mg PO DAILY 04/04/18 04/04/18 History Loratadine [Claritin] 10 mg PO DAILY 04/04/18 04/04/18 History Metformin HCl [Metformin 500mg 1,000 mg PO BID 04/04/18 04/04/18 History Tablet] Metoprolol Succinate 100 mg PO DAILY 04/04/18 04/04/18 History Montelukast Sodium [Montelukast 10 mg PO HS 04/04/18 04/04/18 History 10mg Tab] Pantoprazole Sodium [Protonix 40mg 40 mg PO DAILY 04/04/18 04/04/18 History tablet] Potassium Chloride [Klor-Con 10mEq 10 meq PO HS 04/04/18 04/04/18 History tab] Sucralfate [Sucralfate 1gm 1 gm PO TID 04/04/18 04/04/18 History Tab] Venlafaxine HCl [Venlafaxine HCl 375 mg PO DAILY 04/04/18 04/04/18 History ER] glyBURIDE [Diabeta 5mg tablet] 10 mg PO BID 04/04/18 04/04/18 History hydrOXYzine pamoate [Vistaril] 25 mg PO BID 04/04/18 04/04/18 History raNITIdine HCl [Ranitidine HCl] 150 mg PO DAILY 04/04/18 04/04/18 History Fluticasone Propionate [Flonase 1 spr NS DAILY 04/05/18 04/05/18 History 50mcg nasal spray 16gm] Gabapentin [Neurontin 600mg 600 mg PO TID 04/05/18 04/05/18 History tablet] Polyethylene Glycol 3350 [Gavilax] 17 gm PO DAILY 04/05/18 04/05/18 History hydroCHLOROthiazide [HCTZ 25mg 25 mg PO DAILY 04/05/18 04/05/18 History tab] <Sony Dodson - 04/09/18 11:24> Prescriptions/Medication Reconciliation: New Azithromycin [Zithromax 500mg Tab] 500 mg PO DAILY #3 tab Cefdinir [Omnicef 300mg Capsule] 300 mg PO BID #18 cap Continue Pantoprazole Sodium [Protonix 40mg tablet] 40 mg PO DAILY Loratadine [Claritin] 10 mg PO DAILY Lisinopril [Lisinopril 10mg Tab] 10 mg PO DAILY Aspirin [Aspirin 81mg EC Tab] 81 mg PO DAILY Fluticasone/Salmeterol [Advair 500/50mcg diskus] 2 puff INHALATION DAILY Sucralfate [Sucralfate 1gm Tab] 1 gm PO TID Fenofibrate 160 mg PO DAILY Venlafaxine HCl [Venlafaxine HCl ER] 375 mg PO DAILY Metoprolol Succinate 100 mg PO DAILY Isosorbide Mononitrate [Isosorbide Mononitrate ER] 120 mg PO DAILY Insulin NPH Hum/Reg Insulin Hm [Humulin 70/30 Kwikpen] 50 unit SQ BID Insulin Glargine,Hum.rec.anlog [Basaglar Kwikpen U-100] 60 unit SQ DAILY hydrOXYzine pamoate [Vistaril] 25 mg PO BID glyBURIDE [Diabeta 5mg tablet] 10 mg PO BID Exenatide Microspheres [Bydureon Pen] 2 mg SQ WEEKLY Clopidogrel Bisulfate [Plavix] 75 mg PO HS Canagliflozin [Invokana] 100 mg PO DAILY Buspirone HCl [Buspar 5mg tablet] 5 mg PO TID Atorvastatin Calcium [Atorvastatin 80mg Tab] 80 mg PO HS hydroCHLOROthiazide [HCTZ 25mg tab] 25 mg PO DAILY Polyethylene Glycol 3350 [Gavilax] 17 gm PO DAILY Fluticasone Propionate [Flonase 50mcg nasal spray 16gm] 1 spr NS DAILY Gabapentin [Neurontin 600mg tablet] 600 mg PO TID raNITIdine HCl [Ranitidine HCl] 150 mg PO DAILY Montelukast Sodium [Montelukast 10mg Tab] 10 mg PO HS Potassium Chloride [Klor-Con 10mEq tab] 10 meq PO HS Metformin HCl [Metformin 500mg Tablet] 1,000 mg PO BID <Sony Dodson - 04/09/18 11:24> - Additional Information Additional Information: Concur with plan for discharge as outlined above. <Sony Dodson - 04/09/18 11:24>
== END 2018-04-05 12:11 | disposition home or self-care (01) ==
LOC: ER 18:34 → 2ND 18:34
PROVIDERS: ADMIT Family Medicine; ATTEND Family Medicine

== ENCOUNTER 2022-07-08 09:50 | Emergency (ER) | payer MEDICAID, SELFPAY ==
[2022-07-08 10:00] VITALS: BP 142/90; PULSE 94; O2SAT 98
[2022-07-08 10:04] VITALS: BP 142/90; PULSE 91; RESP 18; TEMP 36.8; O2SAT 95; BMI 33.9
[2022-07-08 10:08] VITALS: BP 142/90; PULSE 91; O2SAT 98
[2022-07-08 10:30] VITALS: BP 120/69; PULSE 91; O2SAT 98
--- NOTE | 2022-07-08 10:36 | HMH.EDGENADL ---
ED Disposition Clinical Impression: Cutaneous abscess Qualifiers: Site of cutaneous abscess: buttock Qualified Code(s): L02.31 - Cutaneous abscess of buttock Disposition: Home, Self-Care Condition on Discharge: Good Instructions: DI for Incision and Drainage of a Skin Abscess, DI for Skin Abscess Additional Instructions: Clindamycin as prescribed. [place] as needed for pain. Additional instructions for ABSCESS: Day one and two: Remove the bandage and shower the area, leaving the packing in place. Gently blot dry. Apply a bandage. Day three: Follow-up with primary care physician, clinic, or Urgent Treatment Center for packing removal and culture results. The urgent treatment center is open from 8 AM to 8 PM 7 days a week. Return to the emergency department if increasing pain, swelling, redness, red streaks or fever greater than 101 degrees. Prescriptions: Hydrocod/Acet 5/325 mg [[place] 5/325mg tablet] 1 tab PO Q6HP PRN #10 tab PRN Reason: Pain Transmission Status: Sent to [facility] clindamycin HCL [Clindamycin HCl] 300 mg PO QID #28 cap Transmission Status: Pending to [facility] Referrals: Xavier Montejo [Primary Care Provider] - - Critical Care Critical Care Time: No Attestation: On 07/08/22, the high probability of a clinically significant, sudden or life threatening deterioration of the following system(s) required my full and direct attention, intervention and personal management. The time I documented below is in addition to time spent performing reported procedures but includes the following listed in this critical care notation. Medical Decision Making - Macario Inquiry Pt receiving controlled substance: Yes Mac[place] was queried for this patient: Yes Risks and benefits of using a controlled substance: were discussed with pt by me Vital Signs: 07/08/22 10:00 07/08/22 10:04 07/08/22 10:08 Temperature 98.3 F Temperature Source Oral Pulse Rate 94 H 91 H Pulse Rate [Left Radial] 91 H Respiratory Rate 18 Blood Pressure 142/90 H 142/90 H Blood Pressure [Right Arm] 142/90 H Blood Pressure Mean 101 Blood Pressure Mean [Right Arm] 107 Blood Pressure Source Automatic Cuff Blood Pressure Position Sitting 02 Sat by Pulse Oximetry 98 95 98 Oxygen Delivery Method Room Air Room Air 07/08/22 10:30 Temperature Temperature Source Pulse Rate 91 H Pulse Rate [Left Radial] Respiratory Rate Blood Pressure 120/69 Blood Pressure [Right Arm] Blood Pressure Mean 86 Blood Pressure Mean [Right Arm] Blood Pressure Source Blood Pressure Position 02 Sat by Pulse Oximetry 98 Oxygen Delivery Method Orders (Tests/Meds): ED MEDICATIONS Discontinued Medications Generic Name Dose Route Start Last Admin Trade Name Dorian PRN Reason Stop Dose Admin Lidocaine/Epinephrine 10 ml 07/08/22 10:50 07/08/22 11:05 Lidocaine 2% W/Epi 1:100,000 20ml Vial IJ 07/08/22 10:51 10 ml ONCE ONE Administration ORDERS Category Date Time Status Wound Culture and Gram Stain Stat Micro 07/08/22 10:55 Received General Adult HPI - General Chief complaint: Urogenital-Female Stated complaint: Possible boil in groin Time Seen by Provider: 07/08/22 10:37 Mode of Arrival: Ambulatory Limitations: No Limitations Description of Symptoms (Recalled from ER Triage Doc. by RN): pt to ed c/o boil on the left side of her groin area. pt states she first noticed it tuesday and it has increasingly gotten more painful. pt states it is not draining. - History of Present Illness HPI narrative: Complains of a sore that she thinks is a boil on her left buttock medially since Tuesday 6 days ago. Getting larger, but not draining and no fever. She has a prior history of some boils which have had to be lanced in the past. Nothing recently. - Related Data Home Medications Medication Instructions Recorded Confirmed Aspirin [Aspirin 81mg EC Tab] 81 mg PO DAILY
--- NOTE | 2022-07-08 10:38 | PC.NURSE ---
ER at for patient eval; friend at BS
--- NOTE | 2022-07-08 10:44 | PC.NURSE ---
pt ambulatory to restroom at this time without complications
--- NOTE | 2022-07-08 11:11 | PC.NURSE ---
Chaperoned MINAL THOMSON at while he did an I&D on patient.
[2022-07-08 11:40] VITALS: BP 124/76; PULSE 88; RESP 17; TEMP 36.7; O2SAT 98
== END 2022-07-08 11:41 | disposition home or self-care (01) ==
PROVIDERS: Emergency Provider Emergency Medicine; PCP Pediatrics
DX: L02.31 Cutaneous abscess of buttock (principal); B95.7 Other staphylococcus as the cause of diseases classified elsewhere; Z16.11 Resistance to penicillins; Z16.39 Resistance to other specified antimicrobial drug; Z86.14 Personal history of Methicillin resistant Staphylococcus aureus infection; I25.10 Atherosclerotic heart disease of native coronary artery without angina pectoris; J44.9 Chronic obstructive pulmonary disease, unspecified; E78.5 Hyperlipidemia, unspecified; Z72.0 Tobacco use
CPT/HCPCS: 10060; 87070; 87077; 87186; 87205; 99283

== ENCOUNTER 2022-07-09 09:57 | Emergency (ER) | payer MEDICAID, SELFPAY ==
--- NOTE | 2022-07-09 10:13 | HMH.EDUTC ---
[facility] [place] Dis[place] Clinical Impression: Skin abscess Qualifiers: Site of cutaneous abscess: buttock Qualified Code(s): L02.31 - Cutaneous abscess of buttock Disposition: Home, Self-Care Condition on Discharge: Good Instructions: Boil Additional Instructions: Keep the affected area as [place] clean and dry as you can. Follow up in 2 days for wound recheck and packing removal. Take the antibiotics as directed and apply the topical antibiotics as directed. Apply warm wet compresses to the affected area three or four times per day. GO TO THE ER FOR ANY WORSENING SYMPTOMS Prescriptions: Mupirocin [Bactroban 2% Ointment 22gm tube] 1 applicatio TP TID 7 Days #1 gm Transmission Status: Received by [facility] Referrals: Xavier Montejo [Primary Care Provider] - Time of Disposition: 11:30 Medical Decision Making - Medical Records Medical records reviewed: No: I reviewed the patient's medical records. - Macario Inquiry Pt receiving controlled substance: No Vital Signs: 07/09/22 10:22 07/09/22 11:34 Temperature 97.8 F 97.8 F Temperature Source Oral Pulse Rate 94 H Pulse Rate [Left] 94 H Respiratory Rate 18 18 Blood Pressure 110/64 Blood Pressure [Right Arm] 110/64 Blood Pressure Mean [Right Arm] 79 02 Sat by Pulse Oximetry 97 [facility] [place] HPI - General Stated complaint: Wound needs repacked Time Seen by Provider: 07/09/22 10:13 - History of Present Illness Provider Complaint: She is here with a wound from i&d yesterday of an abscess. She states that her packing came out today on accident and she is here to have it replaced. - Related Data Home Medications Medication Instructions Recorded Confirmed Aspirin [Aspirin 81mg EC Tab] 81 mg PO DAILY 04/04/18 04/04/18 Atorvastatin Calcium [Lipitor 80mg 80 mg PO HS 04/04/18 04/04/18 Tab] Buspirone HCl [Buspar 5mg tablet] 5 mg PO TID 04/04/18 04/04/18 Canagliflozin [Invokana] 100 mg PO DAILY 04/04/18 04/04/18 Clopidogrel Bisulfate [Clopidogrel 75 mg PO HS 04/04/18 04/04/18 75mg Tab] Exenatide Microspheres [Bydureon 2 mg SQ WEEKLY 04/04/18 04/04/18 Pen] Fenofibrate 160 mg PO DAILY 04/04/18 04/04/18 Fluticasone/Salmeterol [Advair 2 puff INHALATION DAILY 04/04/18 04/04/18 500/50mcg diskus] Insulin Glargine,Hum.rec.anlog 60 unit SQ DAILY 04/04/18 04/04/18 [Basaglar Kwikpen U-100] Insulin NPH Hum/Reg Insulin Hm 50 unit SQ BID 04/04/18 04/05/18 [Humulin 70/30 Kwikpen] Isosorbide Mononitrate [Isosorbide 120 mg PO DAILY 04/04/18 04/04/18 Mononitrate ER] Loratadine [Claritin] 10 mg PO DAILY 04/04/18 04/04/18 Metformin HCl [Glucophage 500mg 1,000 mg PO BID 04/04/18 04/04/18 Tablet] Metoprolol Succinate 100 mg PO DAILY 04/04/18 04/04/18 Montelukast Sodium [Montelukast 10 mg PO HS 04/04/18 04/04/18 10mg Tab] Pantoprazole Sodium [Protonix 40mg 40 mg PO DAILY 04/04/18 04/04/18 tablet] Potassium Chloride [Klor-Con 10mEq 10 meq PO HS 04/04/18 04/04/18 tab] Sucralfate [Sucralfate 1gm 1 gm PO TID 04/04/18 04/04/18 Tab] Venlafaxine HCl [Venlafaxine HCl 375 mg PO DAILY 04/04/18 04/04/18 ER] glyBURIDE [Diabeta 5mg tablet] 10 mg PO BID 04/04/18 04/04/18 hydrOXYzine pamoate [Vistaril] 25 mg PO BID 04/04/18 04/04/18 lisinopriL [Lisinopril 10mg Tab] 10 mg PO DAILY 04/04/18 04/04/18 raNITIdine HCL [Ranitidine HCl] 150 mg PO DAILY 04/04/18 04/04/18 Fluticasone Propionate [Flonase 1 spr NS DAILY 04/05/18 04/05/18 50mcg nasal spray 16gm] Gabapentin [Neurontin 600mg 600 mg PO TID 04/05/18 04/05/18 tablet] hydroCHLOROthiazide [HCTZ 25mg 25 mg PO DAILY 04/05/18 04/05/18 tab] polyethylene glycoL 3350 [Gavilax] 17 gm PO DAILY 04/05/18 04/05/18 Previous Rx's Medication Instructions Recorded Azithromycin [Zithromax 500mg Tab] 500 mg PO DAILY #3 tab 04/05/18 Cefdinir [Omnicef 300mg Capsule] 300 mg PO BID #18 cap 04/05/18 Hydrocod/Acet 5/325 mg [[place] 1 tab PO Q6HP PRN
[2022-07-09 10:22] VITALS: BP 110/64; PULSE 94; RESP 18; TEMP 36.6; O2SAT 97; BMI 33.9
[2022-07-09 11:34] VITALS: BP 110/64; PULSE 94; RESP 18; TEMP 36.6
== END 2022-07-09 11:35 | disposition home or self-care (01) ==
PROVIDERS: Emergency Provider Nurse Practitioner Family; PCP Pediatrics
DX: L02.31 Cutaneous abscess of buttock (principal); Z48.01 Encounter for change or removal of surgical wound dressing; I25.10 Atherosclerotic heart disease of native coronary artery without angina pectoris; E78.5 Hyperlipidemia, unspecified; E11.9 Type 2 diabetes mellitus without complications; J44.9 Chronic obstructive pulmonary disease, unspecified; F17.210 Nicotine dependence, cigarettes, uncomplicated; Z79.4 Long term (current) use of insulin; Z79.82 Long term (current) use of aspirin; Z79.84 Long term (current) use of oral hypoglycemic drugs; Z79.51 Long term (current) use of inhaled steroids; Z79.899 Other long term (current) drug therapy; Z86.14 Personal history of Methicillin resistant Staphylococcus aureus infection; Z82.49 Family history of ischemic heart disease and other diseases of the circulatory system; Z83.3 Family history of diabetes mellitus; Z83.438 Family history of other disorder of lipoprotein metabolism and other lipidemia
CPT/HCPCS: 99211; G0463

== ENCOUNTER 2022-07-11 12:01 | Emergency (ER) | payer MEDICAID, SELFPAY ==
[2022-07-11 12:49] VITALS: BP 115/70; PULSE 96; RESP 16; TEMP 36.7; O2SAT 100; BMI 33.9
[2022-07-11 13:26] VITALS: BP 115/70; PULSE 96; RESP 16; TEMP 36.7
== END 2022-07-11 13:27 | disposition home or self-care (01) ==
PROVIDERS: Emergency Provider Nurse Practitioner; PCP Pediatrics
DX: Z48.01 Encounter for change or removal of surgical wound dressing (principal)

== ENCOUNTER 2022-07-12 17:28 | Emergency (ER) | payer MEDICAID, SELFPAY ==
[2022-07-12 19:13] VITALS: BP 142/80; PULSE 92; RESP 18; TEMP 36.6; O2SAT 97; BMI 42.9
[2022-07-12 19:15] VITALS: BP 142/80; PULSE 92; RESP 18; TEMP 36.7; O2SAT 97
== END 2022-07-12 19:16 | disposition home or self-care (01) ==
LOC: UTC 17:30
PROVIDERS: Emergency Provider Nurse Practitioner; PCP Pediatrics
DX: Z00.00 Encounter for general adult medical examination without abnormal findings (principal)